=== PATIENT | female | born 1965 | race Caucasian/White ===

== ENCOUNTER 2018-08-13 11:18 | Day surgery (SDC) | payer OTHER, SELFPAY ==
--- NOTE | 2018-08-13 07:48 | PCM.HP.BLA ---
History and Physical Date of Admission: 08/13/18 HISTORY AND PHYSICAL ? Lurdes Soares 1965 ? REFERRING PHYSICIAN: ??Self ? CHIEF COMPLAINT: ??colon consult ? HPI: The patient is a 53 year old female referred for endoscopy. ?Lurdes notes a past history of collagenous colitis. ?Last colonoscopy was in 2009, operative note reviewed. ?She had a small rectal polyp removed at that time, pathology report not available for review. ?She denies any change in bowel habits, weight changes, blood in stools, black tarry stools or abdominal pain. ?She denies any family history of colon cancer. The patient notes a past history of bleeding peptic ulcer. ?She denies any upper GI complaints currently. ? The patient is being seen by me today at the request of Zenon Preciado MD??for my opinion and advice regarding screening colonoscopy. ?Past medical history significant for migraines, anxiety disorder, history of anorexia nervosa. ??She denies any cardiac or pulmonary issues. ?Denies recent hospitalizations. ? ? PAST MEDICAL HISTORY PAST MEDICAL HISTORY Diagnosis Date ? Colitis, collagenous ? ? Dysthymic disorder ? ? Depression (non-psychotic) ? Generalized anxiety disorder ? ? Anxiety, Generalized ? Headache(784.0) ? ? Headaches ? History of anorexia nervosa ? ? Mild dysplasia of cervix 2004 ? Nonorganic sleep disorder, unspecified ? ? Non-org. sleep disorder ? Panic disorder without agoraphobia ? ? Panic disorder ? Ulcer of abdomen wall (HCC) ? PAST SURGICAL HISTORY PAST SURGICAL HISTORY Procedure Laterality Date ? CARPAL TUNNEL Left 11/04/2016 ? left carpal tunnel release-Dr. Martínez ? CERVIX UTERI CONIZA LP ELCTRO EXCI ? ? LEEP-Cervix ? L'SCOPE DX W/WO BRUSHINGS/WASHINGS ? ? ? Laparoscopy, bleeding ulcer repair ? ? ? CURRENT MEDICATIONS ? Current Outpatient Prescriptions: LYRICA 50 mg capsule Take 50 mg by mouth twice daily. traMADol (ULTRAM) 50 mg tablet take 1 tablet by mouth ONCE TO TWICE DAILY if needed for pain potassium chloride ER (K-DUR, KLOR-CON) 20 mEq tablet Take 1 tablet by mouth four times daily. pantoprazole DR (PROTONIX) 40 mg tablet take 1 tablet by mouth twice a day CALCIUM CARBONATE/VITAMIN D3 (CALCIUM + D ORAL) Take ?by mouth. venlafaxine hcl(EFFEXOR XR 75 MG 24 HR CAP) Take three (3) tablets every day buspirone hcl(BUSPAR 15 MG TAB) Take one(1) tablet two(2) times daily. traZODONE (DESYREL) 50 mg ORAL Tab 1 or 2 tabs at hs for sleep DAILY MULTIVITAMIN TAB Take one(1) tablet daily. tiZANidine (ZANAFLEX) 4 mg tablet Take 1 tablet by mouth every 8 hours as needed (muscle spasms). (Patient not taking: Reported on 06/20/2018 ) ? No current facility-administered medications for this visit. ? ALLERGIES: Seasonal Allergies; Shrimp; Sulfa (Sulfonamide Antibiotics) ? PERSONAL HISTORY: SOCIAL HISTORY Social History ??Marital status: ?Spouse name: Esteban ?Years of education: 12+ ?Number of children: 3 ? 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 Social History Main Topics ??Smoking status: Current Every Day Smoker ?Packs/day: 1.00 ?Years: 25.00 ?Types: Cigarettes ??Smokeless tobacco: Never Used ?Alcohol use: No ?Drug use: No ?Sexual activity: Yes ?Partners with: Male ? control/protection: Condom ?Comment: Postmenopausal ? FAMILY HISTORY: FAMILY HISTORY FAMILY HISTORY Problem Relation Age of Onset ? Cancer Paternal Grandmother ?uterine ? Cancer Maternal Grandfather ? Alzheimer's Disease Paternal Grandfather ? ? ? REVIEW OF SYMPTOMS: ??The review of systems data was entered by the nurse and reviewed by me ? Nursing Notes: Anita Hammer MYRIAM ?06/20/2018 ?8:30 AM ?Signed REVIEW OF SYSTEMS: ?General:???The patient NOTES fatigue, denies weight loss, denies weight gain, denies feeling hot, and denies feelings of cold. ?Eyes: ?The patient denies glaucoma, denies eye injury/surgery, wears glasses or contacts. ?Ear/Nose/Throat: ?The patient NOTES allergies, denies hayfever, denies ear infections, and denies bloody noses. ?Cardiovascular: ?The patient denies chest pain, denies heart disease, denies high blood pressure,denies cardiac stent, denies prior heart attack, denies irregular heart beat, denies high cholesterol, ?denies poor circulation, denies heart failure, other cardiac issues, denies claudication, denies cold feet, denies peripheral arterial stent. ?Respiratory: ?The patient denies tuberculosis, denies pneumonia, denies frequent cough, denies pulmonary embolism, denies shortness of breath, and denies coughing up blood. ?Gastrointestinal: ?The patient denies difficulty swallowing, denies acid reflux, NOTES ulcers, denies vomiting, denies jaundice/hepatitis, denies gallbladder problems, denies black or tarry stools, denies hemorrhoids, denies bleeding from rectum, denies diverticulitis, denies constipation, NOTES diarrhea, denies loss of stool control, and denies hernias. ?Kidney/Bladder: ?The patient NOTES kidney stones, denies urine infections, and denies bloody urine. ?Skin: ?The patient denies a history of skin cancer, denies bleeding/changing moles, and denies a history of skin rash. ?Neurologic: ?The patient denies a history of epilepsy/convulsions, NOTES headaches, NOTES head/spinal injuries, and denies stroke/TIA. ?Psychiatric: ?The patient NOTES psychiatric medications, NOTES depression, and denies voices, denies substance abuse. ?Endocrine: ?The patient denies thyroid disorders, denies diabetes, and denies hormonal problems. ?Hematologic: ?The patient denies a history of bruising, denies bleeding, and denies anemia, denies blood clots. ?Infections: ?The patient denies a history of measles and mumps, denies rheumatic fever, and NOTES sexually transmitted diseases. ?Musculoskeletal: ?The patient NOTES back pain/injury, NOTES back problems, denies sciatica, denies knee/foot trouble, NOTES arthritis, or denies gout. ? ? When was patient's last Mammogram screening? 08/2016 ? ?Last Colonoscopy: ?None ? Anita Hammer LPN? I have confirmed and edited as necessary, the PFSH and ROS obtained by others. ? ? PHYSICAL EXAMINATION: ? General: ?The patient is 53 year old female, well nourished, well hydrated in no acute distress. ?The patient is oriented to time, place, and person. ? VITALS: Blood pressure 150/82, pulse 80, weight 54.4 kg (120 lb), last menstrual period 08/03/2006.?Body mass index is 21.26 kg/m?.? ? HEENT: ?Normal cephalic, ataumatic, pupils are equally round, sclera are anicteric, mucous membranes are moist, oropharynx is clear. ?Neck has no masses, asymmetry or lymphadenopathy. ?Thyroid is unremarkable. ? Respiratory: ?Clear to auscultation and percussion. ?Normal respiratory excursion and pattern. ? Cardiac: ?Examination is regular rate and rhythm. ? Abdominal exam: ?Soft, nontender, ?with no palpable masses. ?No hepatosplenomegaly. ?No palpable hernias. ? Rectal exam: exam deferred ? Extremities: ?no clubbing, cyanosis or edema. ?No adenopathy. ? Other: ? LABORATORY VALUES: As Noted ? RADIOLOGIC STUDIES: ?As Noted ? Assessment ? IMPRESSION: encounter for screening colonoscopy ? PLAN: ?Will plan for colonoscopy. ?We discussed the risks and benefits of the planned endoscopy. ?I have informed the patient that complications can occur including failure to complete the endoscopy and perforation. ?The patient had the opportunity to ask questions concerning the planned endoscopy. ?My staff has also explained the procedure to the patient in understandable terms and has given the patient printed material concerning the procedure. ?The patient freely consents to surgery. ? I plan to use golytely bowel preparation for endoscopy ? The patient takes prescription medications which I feel decrease the chance of successful sedation. ?I therefore plan for monitored anesthetic care. ? Diagnoses: (Z12.11) Encounter for screening for malignant neoplasm of colon ?(primary encounter diagnosis) ? My findings have been communicated to Dr. Ferrara?via shared medical record. ?This note will be forwarded to Dr. Zenon Preciado MD. ?? Return to Clinic: The patient is instructed to follow-up with me 1 week post operatively. ? Maddy Taylor PA-C
[2018-08-13 11:46] VITALS: BP 101/68; PULSE 73; RESP 16; TEMP 36.9; O2SAT 97; BMI 21.0
--- NOTE | 2018-08-13 12:30 | COLBX_PTH ---
PATIENT: AGUSTÍN DALE LOC: EN U#:[id number] AGE/SX: 53/F ROOM: RE08/13/[address]: Dr. Perez Bowie MD : 1965 BED: DIS: 08/13/2018 SPEC #: [id number] RECD: 08/13/18 16:11 STATUS: CASSY ANDRES #: [id number] BERONICA: 08/13/18 12:[address]: Perez Bowie DEPT: SURGICAL PATHOLOGY RECD BY: Yadiel Arguello ENTERED: 08/14/18 10:11 SP TYPE: COLON BX OTHR DR: Dr. Zenon Preciado MD Tissues: A - Small intestine biopsy B - COLON BIOPSY C - Transverse colon D - Rectum, NOS Procedures: Surgery Specimen Level IV HEADER OPERATION: Colonoscopy (MAC) PRE-OP DIAGNOSIS: Screening TISSUE SUBMITTED: A. Small bowel biopsy, B. Random colonic biopsy, C. Transverse polyp, D. Rectal polyp MICROSCOPIC DIAGNOSIS A. Small bowel, biopsy: Changes consistent with collagenous enteritis. B. Colon, random biopsy: Collagenous colitis. C. Transverse colon polyp, biopsy: Hyperplastic polyp. Fecal debris. D. Rectal polyp, biopsy: Fragments of tubular adenoma. AM:jessie 08/15/18 MICROSCOPIC DESCRIPTION Slides are reviewed. GROSS DESCRIPTION A - Received in fixative is one container labeled with the patient's name and designated small bowel biopsy. The specimen consists of multiple irregular fragments of light lama soft tissue that in aggregate measure 0.3 x 0.2 x 0.1 cm. The specimen is totally submitted in one cassette. B - Received in fixative is one container labeled with the patient's name and designated random colonic biopsy. The specimen consists of multiple irregular fragments of light lama soft tissue that in aggregate measure 0.8 x 0.3 x 0.1 cm. The specimen is totally submitted in one cassette. C - Received in fixative is one container labeled with the patient's name and designated transverse polyp. The specimen consists of multiple irregular fragments of lama soft tissue mixed with fecal material that in aggregate measure 2.5 x 1 x 0.1 cm. The specimen is totally submitted in one cassette. D - Received in fixative is one container labeled with the patient's name and designated rectal polyp. The specimen consists of multiple polypoid fragments of lama soft tissue mixed with fecal material that in aggregate measure 2 x 1.5 x 0.3 cm. The specimen is totally submitted in one cassette. / SJ:jessie 08/14/18 TC:5 CPT: 73541 x4
[2018-08-13 14:00] VITALS: BP 101/68; BP 104/77; BP 108/68; PULSE 78; RESP 16; TEMP 37; O2SAT 100; O2SAT 99
[2018-08-13 14:05] VITALS: BP 101/68; BP 104/77; PULSE 78; RESP 16; O2SAT 100
[2018-08-13 14:10] VITALS: BP 101/68; BP 109/76; PULSE 75; RESP 16; O2SAT 100
--- NOTE | 2018-08-13 14:11 | OP.ENDO_ITS ---
Patient Name: Lurdes Soares Procedure Date: 08/13/2018 12:56 PM Date of : 1965 Age: 53 Procedure: Colonoscopy Indications: High risk colon cancer surveillance: Personal history of colonic polyps Providers: Perez Bowie MD Medicines: Monitored Anesthesia Care Patient Profile: This is a 53 year old female. Refer to note in patient chart for documentation of history and physical. Last Colonoscopy: more than 3 years ago. Complications: No immediate complications. Procedure: Pre-Anesthesia Assessment: - Prior to the procedure, a History and Physical was performed, and patient medications and allergies were reviewed. The patient is competent. The risks and benefits of the procedure and the sedation options and risks were discussed with the patient. All questions were answered and informed consent was obtained. Patient identification and proposed procedure were verified by the physician and the nurse in the procedure room. Mental Status Examination: alert and oriented. Airway Examination: normal oropharyngeal airway and neck mobility. Respiratory Examination: clear to auscultation. CV Examination: normal. Prophylactic Antibiotics: The patient does not require prophylactic antibiotics. Prior Anticoagulants: The patient has taken no previous anticoagulant or antiplatelet agents. ASA Grade Assessment: III - A patient with severe systemic disease. After reviewing the risks and benefits, the patient was deemed in satisfactory condition to undergo the procedure. The anesthesia plan was to use monitored anesthesia care (MAC). Immediately prior to administration of medications, the patient was re-assessed for adequacy to receive sedatives. The heart rate, respiratory rate, oxygen saturations, blood pressure, adequacy of pulmonary ventilation, and response to care were monitored throughout the procedure. The physical status of the patient was re-assessed after the procedure. After I obtained informed consent, the scope was passed under direct vision. Throughout the procedure, the patient's blood pressure, pulse, and oxygen saturations were monitored continuously. The pediatric colonoscope was introduced through the anus and advanced to 4 cm into the ileum. The colonoscopy was performed without difficulty. The patient tolerated the procedure well. The quality of the bowel preparation was good. Scope In: 1:22:13 PM Scope Withdrawal Time 0 hours 25 minutes 20 seconds Scope Out: 1:54:10 PM Total Procedure Duration Time 0 hours 31 minutes 57 seconds Findings: A scattered area of the proximal ileum was congested. Biopsies were taken with a cold forceps for histology. A scattered area of granular mucosa was found in the cecum. Biopsies for histology were taken with a cold forceps from the cecum and sigmoid colon for evaluation of microscopic colitis. Two sessile polyps were found in the rectum and proximal transverse colon. The polyps were medium in size. These polyps were removed with a hot snare. Resection and retrieval were complete. The retroflexed view of the distal rectum and anal verge was normal and showed no anal or rectal abnormalities. Impression: - Congested mucosa in the proximal ileum. Biopsied. - Granularity in the cecum. Biopsied. - Two medium polyps (adenomatous) in the rectum and in the proximal transverse colon, removed with a hot snare. Resected and retrieved. - The distal rectum and anal verge are normal on retroflexion view. Recommendation: - Discharge patient to home. - Resume previous diet. - Continue present medications. - Return to physician podiatric assistant in 1 week. - Repeat colonoscopy is recommended. The colonoscopy date will be determined after pathology results from today's exam become available for review. Procedure Code(s): --- Professional --- 43934, Colonoscopy, flexible; with removal of tumor(s), polyp(s), or other lesion(s) by snare technique 40075, 59, Colonoscopy, flexible; with biopsy, single or multiple CPT copyright 2017 [employer]. All rights reserved. The codes documented in this report are preliminary and upon certified medical coder review may be revised to meet current compliance requirements. Perez Bowie MD 08/13/2018 2:10:36 PM This report has been signed electronically. Number of Addenda: 0 Note Initiated On: 08/13/2018 12:56 PM
[2018-08-13 14:15] VITALS: BP 101/68; BP 117/66; PULSE 70; RESP 16; TEMP 36.8; O2SAT 99
[2018-08-13 14:30] VITALS: BP 101/68
== END 2018-08-13 14:40 | disposition home or self-care (01) ==
LOC: EN 11:21 → AC 11:21
PROVIDERS: Family Provider Family Medicine; PCP Family Medicine; Referring Provider Surgery; Visit Provider Surgery
PROC: 0DJD8ZZ Inspection of Lower Intestinal Tract, Via Natural or Artificial Opening Endoscopic (ICD-10-PCS; CPT 45378; principal; 2018-08-13 12:25)
DX: Z12.11 Encounter for screening for malignant neoplasm of colon (principal); D12.8 Benign neoplasm of rectum; K52.831 Collagenous colitis; K63.5 Polyp of colon; Z86.010 Personal history of colon polyps; F41.1 Generalized anxiety disorder; F41.0 Panic disorder [episodic paroxysmal anxiety]; F34.1 Dysthymic disorder; F17.210 Nicotine dependence, cigarettes, uncomplicated; K21.9 Gastro-esophageal reflux disease without esophagitis; Z79.899 Other long term (current) drug therapy
CPT/HCPCS: 45380; 45385; 88305; J7120

== ENCOUNTER → 2018-09-25 13:33 | Outpatient (CLI) | payer OTHER, SELFPAY ==
--- NOTE | 2018-09-25 13:36 | RAD_ITS ---
STUDY: X-RAY - CERVICAL SPINE REASON FOR EXAM: Female, 53 years old. Neck pain. TECHNIQUE: 4 view(s) of the cervical spine were obtained. COMPARISON: None FINDINGS: Normal anterior atlantoaxial articulation. Normal odontoid process. Mild cervical kyphosis. No acute fractures. No lytic or blastic lesions. Pronounced C4-C5 disc space height narrowing with prominent bridging anterior marginal spurs and small posterior marginal spurs. Pronounced C5-C6 disc space height narrowing with smaller anterior marginal spurs and more prominent posterior marginal spurs. Moderate C6-C7 disc space height narrowing with minimal anterior marginal spurs. No subluxation following lateral flexion and extension positioning. The soft tissue structures are unremarkable. RAD/Cerv Spine 4 or 5 Views IMPRESSION: 1. Pronounced disc space height narrowing at C4-C5 down to C6-C7 disc space levels. 2. No acute osseous abnormality. 3. No subluxation following lateral flexion and extension positioning. Electronically Signed: Ty Reynaga MD at 10:56 EST , Service support ,
== END ==
PROVIDERS: Family Provider Family Medicine; PCP Family Medicine; Referring Provider Orthopaedic Surgery; Visit Provider Orthopaedic Surgery
DX: M48.02 Spinal stenosis, cervical region (principal)
CPT/HCPCS: 72050

== ENCOUNTER → 2019-06-27 10:14 | Outpatient (CLI) | payer OTHER, SELFPAY ==
[2019-06-27 13:15] LABS: Albumin, Serum 3.5 g/dL (3.2-5.0); BUN 11 mg/dL (7-18); BUN/Creat Ratio 7.1 RATIO (10-20); Calcium,Total 9.6 mg/dL (8.5-10.1); Chloride 110 mmol/L (98-107); Creatinine, Serum 1.55 mg/dL (0.55-1.02); EST Glomerular Filtration Rate 37 mL/min (>60); Est Glom Filt Rate - Afr Amer 45 mL/min (>60); Glucose 84 mg/dL (74-106); Potassium 3.7 mmol/L (3.5-5.1); Sodium Level 140 mmol/L (136-145)
== END ==
PROVIDERS: Family Provider Family Medicine; PCP Family Medicine; Visit Provider Internal Medicine Nephrology
DX: N18.3 Chronic kidney disease, stage 3 (moderate) (principal)
CPT/HCPCS: 36415; 80069; 83970

== ENCOUNTER 2021-11-01 11:03 | Outpatient (CLI) | payer OTHER, SELFPAY ==
[2021-11-01 12:08] LABS: Hemoglobin 11.1 g/dL (12.0-15.0); Mean Corp Hgb Conc 32.6 g/dL (32-36); Mean Corpuscular Hgb 30.7 pg (27.0-32.0); Mean Corpuscular Volume 94.2 fL (81-99); Mean Platelet Vol. 9.8 fl (6.2-12.0); Platelet Count 453 K/mm3 (150-450); RBC Distribution Width SD 48.5 fl (35.1-43.9); Red Blood Count 3.61 M/mm3 (4.2-5.4); White Blood Count 8.7 K/mm3 (4.4-11.0)
[2021-11-01 12:56] LABS: Albumin, Serum 3.3 g/dL (3.2-5.0); BUN 10 mg/dL (7-18); BUN/Creat Ratio 5.3 RATIO (10-20); Calcium,Total 10.1 mg/dL (8.5-10.1); Chloride 113 mmol/L (98-107); Creatinine, Serum 1.88 mg/dL (0.55-1.02); EST Glomerular Filtration Rate 29 mL/min (>60); Est Glom Filt Rate - Afr Amer 35 mL/min (>60); Glucose 69 mg/dL (74-106); Phosphorus 4.1 mg/dL (2.5-4.9); Sodium Level 140 mmol/L (136-145)
[2021-11-01 14:20] LABS: 24HR. UA Prot. Total Volume 3000 mL; Urine Protein (24 Hour) 32.8 mg/dL (<11.9)
[2021-11-01 14:21] LABS: Creat.Clear Total Volume 3000 mL; Creatinine Clearance 27 ml/min (100-200); Creatinine Serum Creat 1.9 mg/dL (0.6-1.0); Creatinine Urine 24.6 mg/dL (NO RANGE EST.); EST Glomerular Filtration Rate 29 mL/min (>60); Est Glom Filt Rate - Afr Amer 35 mL/min (>60)
[2021-11-02 08:21] LABS: PTHIN < 6.3 pg/mL (18.4-80.1)
== END 2021-11-01 23:59 | disposition home or self-care (01) ==
LOC: POLAB3 11:04
PROVIDERS: PCP Family Medicine; Visit Provider Internal Medicine Nephrology
DX: N18.30 Chronic kidney disease, stage 3 unspecified (principal)
CPT/HCPCS: 36415; 80069; 81050; 82575; 83970; 84156; 85027